=== PATIENT | male | born 1990 | race Hispanic/Latino ===

== ENCOUNTER 2019-09-26 10:15 | Emergency (ER) | payer MEDICAID, OTHER, SELFPAY ==
[2019-09-26] MEDS ORDERED: ONDANSETRON HCL 4 MG/2 ML VIAL ONE (12:11)
[2019-09-26] MEDS ORDERED: ACETAMINOPHEN 325 MG TAB ONE (12:12)
[2019-09-26 12:18] LABS: BASOPHILS % (AUTO) 0.3 % (0.0-5.0); EOSINOPHILS % (AUTO) 0.4 % (0.0-8.0); HEMATOCRIT 46.6 % (42-54); LYMPHOCYTES % (AUTO) 4.6 % (21.0-51.0); MEAN CORPUSCULAR HEMOGLOBIN 29.1 pg (27.0-33.0); MEAN CORPUSCULAR HGB CONC 33.9 g/dL (32.0-36.0); MEAN CORPUSCULAR VOLUME 85.8 fL (79-99); MONOCYTES % (AUTO) 4.3 % (3.0-13.0); NEUTROPHILS % (AUTO) 89.7 % (40.0-77.0); PLATELET COUNT (AUTO) 170 K/uL (130-400); RED BLOOD CELL COUNT(AUTO) 5.43 MIL/uL (4.50-6.20); RED CELL DISTRIBUTION WIDTH 13.2 % (11.0-15.5); WHITE BLOOD COUNT (AUTO) 16.4 K/uL (4.8-10.8)
[2019-09-26] MEDS ORDERED: CEFTRIAXONE SODIUM 1 GM ONE (12:52)
[2019-09-26 13:08] LABS: POTASSIUM 3.7 mmol/L (3.5-5.1)
== END 2019-09-26 14:52 | disposition home or self-care (01) ==
LOC: EDH 10:15
DX: J02.0 Streptococcal pharyngitis (principal); J12.89 Other viral pneumonia; R11.2 Nausea with vomiting, unspecified; R50.9 Fever, unspecified; Z20.828 Contact with and (suspected) exposure to other viral communicable diseases; F31.9 Bipolar disorder, unspecified
CPT/HCPCS: 36415; 71045; 80048; 85025; 87880; 96361; 96374; 96375; 99284; J0696; J2405; U0003

== ENCOUNTER 2022-05-24 13:01 | Emergency (ER) | payer OTHER ==
[2022-05-24] MEDS ORDERED: TETANUS/DIPHTHERIA TOXOID [ADULT] 0.5 ML VIAL IM ONE ×2 (13:04→13:30)
[2022-05-24] MEDS ORDERED: LIDOCAINE HCL 1% 20 ML VIAL ONE (13:05)
[2022-05-24] MEDS ORDERED: IOHEXOL 350 MG/ML 100ML INFUS..BTL IV ONE (13:10)
[2022-05-24 13:17] LABS: BASOPHILS % (AUTO) 0.3 % (0.0-5.0); EOSINOPHILS % (AUTO) 0.9 % (0.0-8.0); HEMATOCRIT 42.5 % (42-54); LYMPHOCYTES % (AUTO) 17.1 % (21.0-51.0); MEAN CORPUSCULAR HEMOGLOBIN 28.8 pg (27.0-33.0); MEAN CORPUSCULAR HGB CONC 33.4 g/dL (32.0-36.0); MEAN CORPUSCULAR VOLUME 86.2 fL (79-99); MONOCYTES % (AUTO) 7.6 % (3.0-13.0); NEUTROPHILS % (AUTO) 73.7 % (40.0-77.0); PLATELET COUNT (AUTO) 200 K/uL (130-400); RED BLOOD CELL COUNT(AUTO) 4.93 MIL/uL (4.50-6.20); RED CELL DISTRIBUTION WIDTH 13.6 % (11.0-15.5); WHITE BLOOD COUNT (AUTO) 10.1 K/uL (4.8-10.8)
[2022-05-24 13:27] LABS: POTASSIUM 3.9 mmol/L (3.5-5.1)
[2022-05-24 13:32] LABS: ALBUMIN 3.9 g/dL (3.5-5.0); TOTAL PROTEIN, SERUM 7.3 g/dL (6.0-8.3)
[2022-05-24] MEDS ORDERED: LORAZEPAM 2 MG/ML 1 ML VIAL ONE (13:54)
[2022-05-24] MEDS ORDERED: LORAZEPAM 2 MG/ML 1 ML VIAL IVP ONE (14:00)
[2022-05-24 14:09] VITALS: BP 144/86
[2022-05-24] MEDS ORDERED: ACET-2079 PO (15:10)
[2022-05-24] MEDS ORDERED: IBUP-2070 PO (15:10)
== END 2022-05-24 15:32 | disposition home or self-care (01) ==
LOC: EDH 13:01
DX: S51.811A Laceration without foreign body of right forearm, initial encounter (principal); S21.119A Laceration without foreign body of unspecified front wall of thorax without penetration into thoracic cavity, initial encounter; Z98.890 Other specified postprocedural states; X58.XXXA Exposure to other specified factors, initial encounter; Y93.89 Activity, other specified; Y92.89 Other specified places as the place of occurrence of the external cause; Y99.8 Other external cause status
CPT/HCPCS: 99285; 74160; 71045; 80053; 85025; 86850; 86900; 86901; 36415; 90714; 71260; 90471; 12002; J2060; Q9967